=== PATIENT | male | born 1955 | race Caucasian/White ===

== ENCOUNTER → 2020-05-04 | Outpatient (CLI) | payer MEDICARE, OTHER | LOC: YCFC.O 12:36 | PROVIDERS: ATTEND Family Medicine | DX: I10 Essential (primary) hypertension (principal); E78.5 Hyperlipidemia, unspecified; E03.9 Hypothyroidism, unspecified; R35.1 Nocturia ==

== ENCOUNTER → 2021-01-25 | Outpatient (CLI) | payer MEDICARE, OTHER ==
--- NOTE | 2021-01-26 13:21 | RAD ---
EXAM DESCRIPTION: Humerus,Left CLINICAL HISTORY: 65 years Male, Pain in upper limb COMPARISON: None. FINDINGS: Three views of the left humerus show no acute fracture or malalignment. Small olecranon enthesophyte at the triceps tendon insertion. No radiopaque foreign body or soft tissue gas. IMPRESSION: Olecranon spurring, otherwise unremarkable exam. Electronically signed by: Artur Nettles MD 01/26/2021 1:20 PM [facility]
--- NOTE | 2021-01-26 13:22 | RAD ---
EXAM DESCRIPTION: Shoulder,Left 2 or More Views CLINICAL HISTORY: 65 years Male, Pain of left shoulder joint COMPARISON: None. FINDINGS: Three views of the left shoulder show no acute fracture or malalignment. Mild degenerative changes of the left AC joint including slight undersurface spurring. The soft tissues are unremarkable. IMPRESSION: Mild degenerative changes in the left AC joint, otherwise unremarkable exam. Electronically signed by: Artur Nettles MD 01/26/2021 1:21 PM [facility]
== END ==
LOC: YCFC.O 11:47
PROVIDERS: ATTEND Family Medicine
DX: M19.012 Primary osteoarthritis, left shoulder (principal); M77.9 Enthesopathy, unspecified